=== PATIENT | male | born 1965 | race Caucasian/White ===

== ENCOUNTER 2018-06-24 11:20 | Emergency (ER) | payer BC ==
[2018-06-24 12:10] LABS: #Basophils 0.1 thou/uL (0.0-0.2); #Eosinphils 0.1 thou/uL (0.0-0.7); #Lymphocytes 2.6 thou/uL (1.20-3.40); #Monocytes 0.5 thou/uL (0.11-0.59); #Neutrophils 4.9 thou/uL (1.40-6.50); %Basophils 1.3 % (0.0-1.0); %Eosinophils 0.7 % (0.0-10.0); %Lymphocytes 31.6 % (21.0-51.0); %Neutrophils 60.4 % (42.0-75.0); Hemoglobin 14.8 g/dL (14.0-18.0); Mean Corpuscular HGB CONC 34.6 g/dL (32.0-36.0); Mean Corpuscular Hemoglobin 32.7 pg (27.0-31.0); Mean Corpuscular Volume 94.4 fL (78.0-98.0); Mean Platelet Volume 8.2 fL (7.4-10.4); Platelet Count 197 thou/uL (130-400); RBC Distribution Width 10.7 % (11.5-14.5); Red Blood Cell (RBC) Count 4.53 mill/uL (4.70-6.10); White Blood Cell (WBC) Count 8.2 thou/uL (4.8-10.8)
--- NOTE | 2018-06-24 12:10 | RAD ---
CHEST 2 VIEWS: Date: 06/24/18 HISTORY: Shortness of breath. COMPARISON: None. FINDINGS: Lungs are clear. No pneumothorax or effusion. Cardiac silhouette and mediastinal contours within norm al limits. Radiopaque foreign objects project over both hemithoraces. IMPRESSION: No acute intrathoracic abnormality. POS: [facility]
[2018-06-24 12:26] LABS: ALT (SGPT) 30 U/L (8-55); AST (SGOT) 18 U/L (5-34); Albumin 4.4 g/dL (3.5-5.0); Alkaline Phosphatase 66 U/L (40-150); Anion Gap 13 mmol/L (10-20); BUN (Urea Nitrogen) 10 mg/dL (8.4-25.7); Bilirubin, Total 0.3 mg/dL (0.2-1.2); Calc. Creatinine Clearance 0 mL/min (70-130); Calcium 9.8 mg/dL (7.8-10.44); Carbon Dioxide 23 mmol/L (22-29); Chloride 106 mmol/L (98-107); Estimated GFR-MDRD Greater than 90; Glucose 99 mg/dL (70-105); Protein, Total 7.4 g/dL (6.0-8.3); Sodium 138 mmol/L (136-145)
[2018-06-24 12:27] LABS: CKMB 1.6 ng/mL (0-6.6); Troponin I Less than 0.010 ng/mL (< 0.028)
== END 2018-06-24 13:06 | disposition home or self-care (01) ==
LOC: SCSER 11:20
DX: R06.02 Shortness of breath (principal); E78.5 Hyperlipidemia, unspecified; F41.9 Anxiety disorder, unspecified; Z87.891 Personal history of nicotine dependence; Z79.899 Other long term (current) drug therapy; Z79.82 Long term (current) use of aspirin
CPT/HCPCS: 36415; 71046; 80053; 82553; 84484; 85025; 85379; 93005

== ENCOUNTER 2019-04-08 16:00 | Outpatient (CLI) | payer BC | END 2019-04-08 16:01 | disposition home or self-care (01) | LOC: SLEEPLAB 16:00 | PROVIDERS: ATTEND Family Medicine | DX: G47.33 Obstructive sleep apnea (adult) (pediatric) (principal); R53.83 Other fatigue; G47.00 Insomnia, unspecified; I25.10 Atherosclerotic heart disease of native coronary artery without angina pectoris; R06.83 Snoring; F41.9 Anxiety disorder, unspecified | CPT/HCPCS: 95806 ==

== ENCOUNTER 2019-04-22 20:30 | Outpatient (CLI) | payer BC | END 2019-04-22 20:31 | disposition home or self-care (01) | LOC: SLEEPLAB 20:30 | PROVIDERS: ATTEND Family Medicine | DX: G47.33 Obstructive sleep apnea (adult) (pediatric) (principal); I25.10 Atherosclerotic heart disease of native coronary artery without angina pectoris; R53.83 Other fatigue; R06.83 Snoring; F41.9 Anxiety disorder, unspecified; G47.00 Insomnia, unspecified | CPT/HCPCS: 95811 ==

== ENCOUNTER 2019-06-03 07:04 | Outpatient (CLI) | payer BC ==
--- NOTE | 2019-06-03 09:50 | ULT ---
ULTRASOUND ABDOMEN COMPLETE HISTORY: Abdominal pain. COMPARISON: No prior comparison. TECHNIQUE: Jimenez-scale ultrasound evaluation of the liver, gallbladder, spleen, pancreas, common bile duct, kidne ys, abdominal aorta, and inferior vena cava (IVC). FINDINGS: No focal hepatic lesion. There is diffuse increased echogenicity of the hepatic parenchyma. No acut e gallbladder pathology. The common duct measures 5 mm, within normal limits. Pancreas is obscured from view limiting assessment. The spleen is unremarkable. Portions of the aorta are also obscured from view which limits assessment. No ascites. The left kidney is unremarkable. Thee is a focus of increased echogenicity with posterior shadowing involving the right kidney indicative of renal calci fication. No associated hydronephrosis is visualized. IMPRESSION: 1. Right renal calcification without hydronephrosis. 2. Findings which may relate to hepatic steatosis. Correlate with liver function enzymes. 3. No acute gallbladder pathology. POS: [facility]
== END 2019-06-03 07:05 | disposition home or self-care (01) ==
LOC: SCSULT 07:04
PROVIDERS: ATTEND Family Medicine
DX: R10.84 Generalized abdominal pain (principal); N28.89 Other specified disorders of kidney and ureter
CPT/HCPCS: 76700